=== PATIENT | female | born 2000 | race Caucasian/White ===

== ENCOUNTER 2024-05-09 23:41 | Emergency (ER) | payer SELFPAY ==
[~2024-05-09] VITALS: Ht 160 cm; Wt 91.0 kg
[2024-05-10 00:54] VITALS: O2SAT 100
[2024-05-10] MEDS: ONDANSETRON HCL 4MG/2ML INJ IV STA (00:54)
[2024-05-10] MEDS: MIDAZOLAM HCL 2 MG/2 ML VIAL IV ONE (00:54)
[2024-05-10 01:00] LABS: BASOPHILS % 0.4 % (0.0-2.0); EOSINOPHILS % 0.8 % (0.0-5.0); HEMATOCRIT. 38.3 % (36.0-48.0); HEMOGLOBIN. 12.8 g/dL (12.0-16.0); LYMPHOCYTES % 28.8 % (20.0-50.0); MEAN CORPUSCULAR HEMOGLOBIN 28.2 pg (28.0-32.0); MEAN CORPUSCULAR HGB CONC 33.4 g/dL (31.0-37.0); MEAN CORPUSCULAR VOLUME 84.6 fL (81.0-99.0); MEAN PLATELET VOLUME 9.2 fl (7.4-10.4); PLATELET 210 x1000/uL (130-400); RED BLOOD CELL COUNT 4.53 mill/uL (4.2-5.4); RED CELL DISTRIBUTION WIDTH 14.1 % (11.6-14.6); WHITE BLOOD COUNT 9.9 x1000/uL (4.5-11.0)
[2024-05-10] MEDS: SODIUM CHLORIDE 0.9% 1,000 ML IV ONE (01:05)
[2024-05-10 01:09] VITALS: TEMP 98
[2024-05-10 01:09] LABS: CARBON DIOXIDE 21 mEq/L (21-32); CHLORIDE 107 mEq/L (98-107); POTASSIUM 3.1 mEq/L (3.5-5.1); SODIUM 138 mEq/L (136-145)
[2024-05-10 01:10] LABS: CALCIUM 9.9 mg/dL (8.7-10.4)
[2024-05-10 01:14] LABS: CREATININE 0.7 mg/dL (0.6-1.0)
[2024-05-10 01:15] LABS: GLUCOSE 145 mg/dL (70-105); UREA NITROGEN BLOOD 12 mg/dL (9-23)
[2024-05-10 01:32] LABS: ETHANOL BLOOD < 10 mg/dL (<10)
[2024-05-10 02:38] LABS: HCG SCREEN NEGATIVE
[2024-05-10 03:12] LABS: *AMPHETAMINES SCREEN URINE NEGATIVE (NEGATIVE); *BARBITURATES SCREEN URINE NEGATIVE (NEGATIVE); *BENZODIAZEPINES SCREEN URINE PRESUMPTIVE POSITIVE (NEGATIVE); *COCAINE SCREEN URINE NEGATIVE (NEGATIVE); METHADONE URINE SCREEN NEGATIVE (NEGATIVE); OPIATES URINE SCREEN NEGATIVE (NEGATIVE)
[2024-05-10 03:13] LABS: CANNABINOID URINE SCREEN PRESUMPTIVE POSITIVE (NEGATIVE); ECSTASY MDMA SCREEN URINE NEGATIVE (NEGATIVE); PHENCYCLIDINE URINE SCREEN NEGATIVE (NEGATIVE)
[2024-05-10] MEDS ORDERED: ONDA4TAB50 MT (03:26)
[2024-05-10 05:27] VITALS: BP 111/68; PULSE 96; RESP 16
== END 2024-05-10 05:29 | disposition home or self-care (01) ==
LOC: ER 23:41
DX: T40.711A Poisoning by cannabis, accidental (unintentional), initial encounter (principal); R42 Dizziness and giddiness; R53.1 Weakness; F12.90 Cannabis use, unspecified, uncomplicated; Y92.89 Other specified places as the place of occurrence of the external cause
CPT/HCPCS: 93005; 99284; 80305; 80048; 80320; 84703; 85025; 36415; 96361; 96374; 96375; J2250; J2405; J7030; G0480